=== PATIENT | male | born 1965 | race Asian ===

== ENCOUNTER 2017-05-05 01:19 | Emergency (ER) | payer BC ==
[~2017-05-05] VITALS: Ht 172.7 cm; Wt 97.5 kg
[2017-05-05] MEDS ORDERED: SODIUM CHLORIDE 0.9% 1000ML 1,000 ML IV SCH (01:45)
[2017-05-05] MEDS ORDERED: MORPHINE SULFATE 2 MG/ML SYR IV STA (02:02)
[2017-05-05 02:40] VITALS: BP 139/86
== END 2017-05-05 03:15 | disposition home or self-care (01) ==
LOC: FSED 01:19
DX: N20.1 Calculus of ureter (principal); R94.4 Abnormal results of kidney function studies; R73.9 Hyperglycemia, unspecified; R03.0 Elevated blood-pressure reading, without diagnosis of hypertension; E03.9 Hypothyroidism, unspecified
CPT/HCPCS: 74176; 80053; 81003; 85025; 96360; 99284; J2270